=== PATIENT | male | born 1945 ===

== ENCOUNTER 2023-06-02 08:40 | Outpatient (AMB) | payer MEDICARE, SELFPAY ==
--- NOTE | 2023-06-02 08:43 | A.OFFVIS_ITS ---
Intake Intake Visit Reasons: [employer]- Right Knee pain Intake Note: Mr. Rocha presents with complaints of right knee pain. He describes his pain as sharp in nature. Most of the pain is along the medial aspect of his knee. He was recently seen at an urgent care center where he was told that his pain is due to ?arthritis?. He has tried anti-inflammatory medicines and Tylenol which gave him minimal relief. He has had cortisone injections in the past. He also went to formal physical therapy at [facility] in [place] which gave him minimal relief. He wishes to hold off on surgery for as long as possible. Allergies No Known Allergies Allergy (Verified 06/02/23 08:49) Medication List - Last Reconciled 06/02/23 by Thomas August MD atorvastatin 80 mg PO DAILY metformin 1,000 mg PO BID PFSH Surgical History Hx of shoulder surgery Social History Household Members: Spouse Housing: House Alcohol intake: current Alcohol intake frequency: a few times a month Alcohol type: wine Patient Tobacco Use Status: Never used Tobacco Use of substances other than those prescribed or required for medical reasons: No Current occupational status: retired Physical Exam Const Other: Well-nourished well-developed very friendly male awake alert and oriented x3 in no acute distress Extrem Other: Bilateral lower extremity examination shows good capillary refill, no skin lesions noted, normal sensation light touch Right knee examination shows a minimal effusion, mild crepitus with range of motion, no instability Results Reviewed Results Reviewed: X-rays of the patient's right knee show mild to moderate diffuse joint space narrowing, no acute bony abnormalities Assessment & Plan Assessment & Plan (1) Arthritis of right knee: Code(s): M17.11 - Unilateral primary osteoarthritis, right knee Plan Mr. Rocha presents with right knee pain due to degenerative joint disease. I had a lengthy discussion with the patient regarding the treatment options. He wishes to hold off on surgery for as long as possible. I agree with this plan. I will see whether not his insurance company will cover a viscosupplementation injection. I will see him back once the injection is available. He will follow-up as instructed. I spent 22 minutes in reviewing the patient's records and imaging studies, seeing the patient and documenting in the medical record. Orders: Orders XR knee RT 3V Today M25.561 - Pain in right knee Coding Level of Care Code Est Pt Level 2 (85010) Diagnoses Arthritis of right knee M17.11
== END 2023-06-02 09:14 | disposition home or self-care (01) ==
PROVIDERS: Visit Provider Orthopaedic Surgery
DX: M17.11 Unilateral primary osteoarthritis, right knee (principal)
CPT/HCPCS: 99213

== ENCOUNTER 2023-06-02 09:29 | Outpatient (REF) | payer MEDICARE, SELFPAY | END 2023-06-02 09:30 | disposition home or self-care (01) | LOC: HO.HOSX 09:29 | PROVIDERS: Visit Provider Orthopaedic Surgery | DX: M17.11 Unilateral primary osteoarthritis, right knee (principal) | CPT/HCPCS: 99212 ==

== ENCOUNTER → 2023-07-12 11:05 | Outpatient (BNVA) | payer MEDICARE, SELFPAY | PROVIDERS: PCP Internal Medicine; Visit Provider Orthopaedic Surgery ==

== ENCOUNTER 2023-07-19 11:06 | Outpatient (AMB) | payer MEDICARE, SELFPAY ==
--- NOTE | 2023-07-19 11:09 | MHC.OFFVIS ---
Intake Vital Signs 07/19/23 11:11 Height 5 ft 11 in Weight 150 lb BMI 20.9 Intake Visit Reasons: Right Knee Synvisc Gel Inj #1 Intake Note: Mr. Rocha presents with complaints of right knee pain. He describes his pain as sharp in nature. Most of the pain is along the medial aspect of his knee. He was recently seen at an urgent care center where he was told that his pain is due to ?arthritis?. He has tried anti-inflammatory medicines and Tylenol which gave him minimal relief. He has had cortisone injections in the past. He also went to formal physical therapy at [facility] in [place] which gave him minimal relief. He wishes to hold off on surgery for as long as possible. Allergies No Known Allergies Allergy (Verified 07/19/23 11:15) Medication List - Last Reconciled 07/19/23 by Thomas August MD atorvastatin 80 mg PO DAILY metformin 1,000 mg PO BID PFSH Surgical History Hx of shoulder surgery Social History Household Members: Spouse Housing: House Alcohol intake: current Alcohol intake frequency: a few times a month Alcohol type: wine Patient Tobacco Use Status: Never used Tobacco Current occupational status: retired Physical Exam Vital Signs: BMI result Body Mass Index 20.9 Const Other: Well-nourished well-developed very friendly male awake alert and oriented x3 in no acute distress Extrem Other: Bilateral lower extremity examination shows good capillary refill, no skin lesions noted, normal sensation light touch Right knee examination shows a minimal effusion, mild crepitus with range of motion, pain with range of motion, no instability Office Procedures Joint Injection/Drain Joint Injection/Drain Primary Site: right knee Prep: site was prepped using aseptic technique Injected: other (16 mg of Synvisc) Procedure: The patient tolerated the procedure well Coding 57216 - Large joint Procedure code (CPT) selection complete Results Reviewed Results Reviewed: X-rays of the patient's right knee show joint space narrowing, subchondral sclerosis, no acute bony abnormalities Assessment & Plan Assessment & Plan (1) Arthritis of right knee: Code(s): M17.11 - Unilateral primary osteoarthritis, right knee Plan Mr. Rocha presents with right knee pain due to degenerative joint disease. I had a lengthy discussion with the patient regarding the treatment options. He wishes to hold off on surgery for as long as possible. I agree with this plan. The risks and benefits of a series of right knee Synvisc viscosupplementation injections were discussed at length with the patient. The patient wished to proceed. He tolerated the 1st injection well. He will continue with his home exercise program. He will follow up next week as scheduled. Feel free to call me at any time should questions regarding his orthopedic management arise. I spent 22 minutes in reviewing the patient's records and imaging studies, seeing the patient and documenting in the medical record. Orders: Orders AMB Joint Injection/Aspiration 07/19/23 M17.11 - Unilateral primary osteoarthritis, right knee Coding Level of Care Code Est Pt Level 2 (90827) Diagnoses Arthritis of right knee M17.11 CPT Codes Coding - 02865 Large joint: 83187 - Large joint ([id number])
[2023-07-19 11:11] VITALS: BMI 20.9
== END 2023-07-19 11:36 | disposition home or self-care (01) ==
PROVIDERS: PCP Internal Medicine; Visit Provider Orthopaedic Surgery
DX: M17.11 Unilateral primary osteoarthritis, right knee (principal)
CPT/HCPCS: 20610

== ENCOUNTER → 2023-07-19 11:06 | Outpatient (BNVA) | payer MEDICARE, SELFPAY | PROVIDERS: PCP Internal Medicine; Visit Provider Orthopaedic Surgery | DX: M17.11 Unilateral primary osteoarthritis, right knee (principal) | CPT/HCPCS: 20610; J7325 ==

== ENCOUNTER 2023-07-27 11:08 | Outpatient (AMB) | payer MEDICARE, SELFPAY ==
[2023-07-27 11:41] VITALS: BMI 20.9
--- NOTE | 2023-07-27 11:41 | A.OFFVIS_ITS ---
Intake Vital Signs 07/27/23 11:41 Height 5 ft 11 in Weight 150 lb BMI 20.9 Intake Visit Reasons: Right Knee Synvisc Gel Inj #2/ Confirmed Intake Note: Sterling is a 77 year old male who presents for his #2 Right knee Synvisc gel injection. Patient reports his last injection went well and would like to proceed with his next injection. Allergies No Known Allergies Allergy (Verified 07/27/23 11:46) Medication List - Last Reconciled 07/27/23 by Thomas August MD atorvastatin 80 mg PO DAILY metformin 1,000 mg PO BID PFSH Surgical History Hx of shoulder surgery Social History Household Members: Spouse Housing: House Alcohol intake: current Alcohol intake frequency: a few times a month Alcohol type: wine Patient Tobacco Use Status: Never used Tobacco Current occupational status: retired Physical Exam Vital Signs: BMI result Body Mass Index 20.9 Extrem Other: Physical examination of the patient's right knee shows a mild effusion, palpable crepitus with range motion, pain with range of motion, no instability Office Procedures Joint Injection/Drain Joint Injection/Drain Primary Site: right knee Prep: site was prepped using aseptic technique and other (16 mg of Synvisc viscosupplementation) Injected: 1% plain lidocaine Procedure: The patient tolerated the procedure well Coding 78380 - Large joint Procedure code (CPT) selection complete Assessment & Plan Assessment & Plan (1) Arthritis of right knee: Code(s): M17.11 - Unilateral primary osteoarthritis, right knee Plan Mr. Rocha presents with right knee pain due to degenerative joint disease. The risks and benefits of a 2nd Synvisc injection were discussed at length with the patient. The patient wished to proceed. He tolerated the injection well. He will continue with his home exercise program. He will follow up for his 3rd inj ection as scheduled. Feel free to call me at any time should questions regarding his orthopedic management arise. Orders: Orders AMB Joint Injection/Aspiration Today M17.11 - Unilateral primary osteoarthritis, right knee Coding Level of Care Code Procedure Only Diagnoses Arthritis of right knee M17.11 CPT Codes Coding - 47749 Large joint: 71444 - Large joint ([id number])
== END 2023-07-27 12:19 | disposition home or self-care (01) ==
PROVIDERS: PCP Internal Medicine; Visit Provider Orthopaedic Surgery
DX: M17.11 Unilateral primary osteoarthritis, right knee (principal)
CPT/HCPCS: 20610

== ENCOUNTER → 2023-07-27 11:08 | Outpatient (BNVA) | payer MEDICARE, SELFPAY | PROVIDERS: PCP Internal Medicine; Visit Provider Orthopaedic Surgery | DX: M17.11 Unilateral primary osteoarthritis, right knee (principal) | CPT/HCPCS: 20610; J7325 ==

== ENCOUNTER 2023-08-11 10:13 | Outpatient (AMB) | payer MEDICARE, SELFPAY ==
--- NOTE | 2023-08-05 09:00 | MHC.OFFVIS ---
Intake Intake Visit Reasons: Right Knee Synvisc Gel Injection #3 Allergies No Known Allergies Allergy (Verified 07/27/23 11:46) PFSH Surgical History Hx of shoulder surgery Social History Household Members: Spouse Housing: House Alcohol intake: current Alcohol intake frequency: a few times a month Alcohol type: wine Patient Tobacco Use Status: Never used Tobacco Current occupational status: retired Coding
[2023-08-11 10:42] VITALS: BMI 20.9
--- NOTE | 2023-08-11 10:42 | A.OFFVIS_ITS ---
Intake Vital Signs 08/11/23 10:42 Height 5 ft 11 in Weight 150 lb BMI 20.9 Intake Visit Reasons: Right Knee Synvisc Gel Injection #3 Intake Note: Sterling is a 77 year old male who presents for his #3 Right knee Synvisc gel injection. Patient reports his last injection went well and has no concerns for today. He continues with his home exercise program. Allergies No Known Allergies Allergy (Verified 08/11/23 10:43) Medication List - Last Reconciled 08/11/23 by Thomas August MD atorvastatin 80 mg PO DAILY metformin 1,000 mg PO BID PFSH Surgical History Hx of shoulder surgery Social History Household Members: Spouse Housing: House Alcohol intake: current Alcohol intake frequency: a few times a month Alcohol type: wine Patient Tobacco Use Status: Never used Tobacco Current occupational status: retired Physical Exam Vital Signs: BMI result Body Mass Index 20.9 Extrem Other: Right knee examination shows a minimal effusion, palpable crepitus with range of motion, pain with range of motion, no instability Office Procedures Joint Injection/Drain Joint Injection/Drain Primary Site: right knee Prep: site was prepped using aseptic technique Injected: 1% plain lidocaine and other (16 mg of Synvisc viscosupplementation) Procedure: The patient tolerated the procedure well Coding 83091 - Large joint Procedure code (CPT) selection complete Assessment & Plan Assessment & Plan (1) Arthritis of right knee: Code(s): M17.11 - Unilateral primary osteoarthritis, right knee Plan Mr. Rocha presents with right knee pain due to degenerative joint disease. The risks and benefits of his 3rd Synvisc injection were discussed at length with the patient. The patient wished to proceed. He tolerated the injection well. He will continue with his home exercise program. Will follow up with me on an a s-needed basis should his symptoms not plateau at an unacceptable level over the next few months. Feel free to call me at any time should questions regarding his orthopedic management arise. Orders: Orders AMB Joint Injection/Aspiration 08/11/23 M17.11 - Unilateral primary osteoarthritis, right knee Coding Level of Care Code Procedure Only Diagnoses Arthritis of right knee M17.11 CPT Codes Coding - 21446 Large joint: 85683 - Large joint ([id number])
== END 2023-08-11 10:59 | disposition home or self-care (01) ==
PROVIDERS: PCP Internal Medicine; Visit Provider Orthopaedic Surgery
DX: M17.11 Unilateral primary osteoarthritis, right knee (principal)
CPT/HCPCS: 20610

== ENCOUNTER → 2023-08-11 10:13 | Outpatient (BNVA) | payer MEDICARE, SELFPAY | PROVIDERS: PCP Internal Medicine; Visit Provider Orthopaedic Surgery | DX: M17.11 Unilateral primary osteoarthritis, right knee (principal) | CPT/HCPCS: 20610; J7325 ==

== ENCOUNTER 2023-11-17 08:57 | Outpatient (AMB) | payer MEDICARE, SELFPAY ==
--- NOTE | 2023-11-17 09:00 | MHC.OFFVIS ---
Intake Visit Reasons: OV-Right Knee injection follow up Intake Note: Sterling 78 yr old male presents today S/P Right Knee gel synvisc injection follow up from 08/11/23. Pt states the pain is improved when compared to prior the injection. He did aggravate his right knee while vacationing recently her up. He denies any locking or giving way. He takes Aleve which gives him mild relief. Allergies No Known Allergies Allergy (Verified 11/17/23 09:00) Medication List - Last Reconciled 11/17/23 by Thomas August MD atorvastatin 80 mg PO DAILY metformin 1,000 mg PO BID PFSH Surgical History Hx of shoulder surgery Social History Household Members: Spouse Housing: House Alcohol intake: current Alcohol intake frequency: a few times a month Alcohol type: wine Patient Tobacco Use Status: Never used Tobacco Current occupational status: retired Physical Exam Const Other: Well-nourished well-developed very friendly male awake alert and oriented x3 in no acute distress Extrem Other: Right knee examination shows full range of motion when compared to his left knee, mild discomfort with range of motion Results Reviewed Results Reviewed: X-rays of the patient's right knee show joint space narrowing, subchondral sclerosis, no acute bony abnormalities Assessment & Plan Assessment & Plan (1) Arthritis of right knee: Code(s): M17.11 - Unilateral primary osteoarthritis, right knee Category: Medical Plan Mr. Rocha presents with right knee pain due to degenerative joint disease. I had a lengthy discussion with the patient regarding the options. At this point the patient's symptoms are tolerable to him. He will continue with his exercise program. He will continue taking Aleve as needed for his discomfort. He will contact me prior to his follow-up appointment in 2-3 months should any questions or concerns arise. Feel free to call me at any time should questions regarding his orthopedic management arise. I spent 20 minutes in reviewing the patient's records and imaging studies, seeing the patient and documenting in the medical record. Coding Level of Care Code Est Pt Level 2 (67410) Diagnoses Arthritis of right knee M17.11
== END 2023-11-17 09:30 | disposition home or self-care (01) ==
PROVIDERS: PCP Internal Medicine; Visit Provider Orthopaedic Surgery
DX: M17.11 Unilateral primary osteoarthritis, right knee (principal)
CPT/HCPCS: 99213

== ENCOUNTER → 2023-11-17 08:57 | Outpatient (BNVA) | payer MEDICARE, SELFPAY | PROVIDERS: PCP Internal Medicine; Visit Provider Orthopaedic Surgery | DX: M17.11 Unilateral primary osteoarthritis, right knee (principal) | CPT/HCPCS: 99212 ==

== ENCOUNTER 2024-02-09 08:27 | Outpatient (AMB) | payer MEDICARE, SELFPAY ==
[2024-02-09 08:27] VITALS: BMI 20.9
--- NOTE | 2024-02-09 08:27 | A.OFFVIS_ITS ---
Vital Signs 02/09/24 08:27 Height 5 ft 11 in Weight 150 lb BMI 20.9 Intake Visit Reasons: OV-Right Knee injection follow up Intake Note: Sterling is a 78 year old male who presents with complaints of mild intermittent discomfort in his right knee. The patient states that his discomfort is ?99% better? after the viscosupplementation injection. He denies any locking or giv ing way. He does not take any medicines for his discomfort. Allergies No Known Allergies Allergy (Verified 02/09/24 08:28) Medication List - Last Reconciled 02/09/24 by Thomas August MD atorvastatin 80 mg PO DAILY metformin 1,000 mg PO BID PFSH Surgical History Hx of shoulder surgery Social History Household Members: Spouse Housing: House Alcohol intake: current Alcohol intake frequency: a few times a month Alcohol type: wine Patient Tobacco Use Status: Never used Tobacco Current occupational status: retired Physical Exam Vital Signs: BMI result Body Mass Index 20.9 Const Other: Well-nourished well-developed very friendly male awake alert and oriented x3 in no acute distress Extrem Other: Right knee examination shows minimal crepitus with range of motion, no discomfort with range of motion, no instability Assessment & Plan Assessment & Plan (1) Arthritis of right knee: Code(s): M17.11 - Unilateral primary osteoarthritis, right knee Category: Medical Plan Ms. Rocha presents with right knee intermittent discomfort due to degenerative joint disease. I had a lengthy discussion with the patient regarding the treatment options. At this point the patient's symptoms are tolerable to him. He will continue with his activity modifications. He will follow up with me on an as-needed basis should his symptoms worsen in any way. Feel free to call me at any time should questions regarding his orthopedic management arise. I spent 20 minutes in reviewing the patient's records and imaging studies, seeing the patient and documenting in the medical record. Coding Level of Care Code Est Pt Level 3 (88253) Diagnoses Arthritis of right knee M17.11
== END 2024-02-09 08:52 | disposition home or self-care (01) ==
PROVIDERS: PCP Internal Medicine; Visit Provider Orthopaedic Surgery
DX: M17.11 Unilateral primary osteoarthritis, right knee (principal)
CPT/HCPCS: 99213

== ENCOUNTER → 2024-02-09 08:27 | Outpatient (BNVA) | payer MEDICARE, SELFPAY | PROVIDERS: PCP Internal Medicine; Visit Provider Orthopaedic Surgery | DX: M17.11 Unilateral primary osteoarthritis, right knee (principal) | CPT/HCPCS: 99212 ==

== ENCOUNTER 2024-08-15 14:34 | Outpatient (REF) | payer MEDICARE, SELFPAY ==
--- OUTSIDE RECORDS SUMMARY | 2024-08-16 17:54 | XMS_ITS ---
Author Name [facility] Organization Unknown History of Medication Use Medication Directions Dispensed Refills Start Date End Date Stat Clenpiq 10 mg-3.5 gram-12 gram/160 mL oral solution FOLLOW INSTRUCTIONS PROVIDED BY OFFICE active meloxicam 15 mg tablet Take 1 tablet every day by oral route. 03/15/2023 active metformin 1,000 mg tablet TAKE ONE TABLET BY MOUTH TWICE A DAY active metformin 500 mg tablet TAKE ONE TABLET BY MOUTH TWICE A DAY active Problems Problem Status Onset Date Problem Type Date of Resoluti on Source Osteoarthritis of right knee joint active 2023-03-15 ProblemAct ENS_AONECT
--- OUTSIDE RECORDS SUMMARY | 2024-08-16 17:55 | XMS_ITS | Clinical Summary ---
Author Organization [facility] Address [address] [place] [address] Care Team Providers Care Shingle Weaver Name Role Phone Kennedy Gupta MD Primary Care Provider [phone] Allergies No known active allergies Medications Medication Sig Dispensed Refills Start Date End Date Status atorvastatin (LIPITOR) tablet 40 mg TAKE 1 TABLET BY MOUTH EVERY DAY 3 09/16/2017 Active atorvastatin (LIPITOR) tablet 80 mg TAKE ONE TABLET BY MOUTH EVERY DAY 0 04/21/2022 Active benzonatate (TESSALON) 100 MG capsule benzonatate 100 mg capsule TAKE ONE CAPSULE BY MOUTH THREE TIMES A DAY NEEDED 0 Active influenza virus vaccine split, PF, 0.5 ML injection Fluad 65yr up(PF)45 mcg(15 mcgx3)/0.5 mL intramuscular syringe 0 Active metFORMIN (GLUCOPHAGE) tablet 500 mg metformin 500 mg tablet TAKE ONE TABLET BY MOUTH TWICE A DAY WITH MEALS 0 Active oxyCODONE-acetamino phen (PERCOCET) 5-325 MG per tablet oxycodone-acetaminoph en 5 mg-325 mg tablet TAKE 1 TABLET BY MOUTH EVERY 6 HOURS NEEDED 0 Active predniSONE (DELTASONE) tablet 20 mg prednisone 20 mg tablet TAKE TWO TABLETS BY MOUTH EVERY DAY FOR 5 DAYS 0 Active zoster vaccine recombinant adjuvanted (SHINGRIX) 50 MCG/0.5ML injection Shingrix (PF) 50 mcg/0.5 mL intramuscular suspension, kit 0 Active Active Problems Problem Noted Date Diagnosed Date Sprain lunotriquetral joint left wrist 3 Shoulder stiffness, right 03/14/2018 Family History Medical History Relation Name Comments Cancer Father Hyperlipidemia Mother Relation Name Status Comments Father Mother Social History Tobacco Use Types Packs/Day Years Used Date Smoking Tobacco: Never Smokeless Tobacco: Never Tobacco Cessation:Counseling Given: Not Answered Alcohol Use Standard Drinks/Week Comments Yes 1 (1 standard drink = 0.6 oz pur e alcohol) Sex and Gender Information Value Date Recorded Sex Assigned at Male 06/18/2022 3:47 PM EST Gender Identity Male 06/18/2022 3:47 PM EST Sexual Orientation Not on file Job Start Date Occupation Industry Not on file Not on file Not on file Last Filed Vital Signs Vital Sign Reading Time Taken Comments Blood Pressure - - Pulse - - Temperature - - Respiratory Rate - - Oxygen Saturation - - Inhaled Oxygen Concentration - - Weight 68 kg (150 lb) 06/17/2022 11:12 AM EST Height 180.3 cm (5' 11 ) 06/17/2022 11:12 AM EST Body Mass Index 20.92 06/17/2022 11:12 AM EST Plan of Treatment Health Maintenance Due Date Last Done Comments Hepatitis C Screening 1945 COVID-19 Vaccine (#1) 05/09/1946 Depression Screening 1957 Preventative Health Evaluation 11/07/1963 Shingrix-Zoster Vaccine (1 of 2) 11/07/1995 Fall Risk Assessment 2010 Pneumococcal Vaccine (1 of 1 - PCV) 2010 RSV Adult > 60+ Yrs or Pregn ant (1 - 1-dose 75+ series) 2020 Influenza Vaccine (#1) 2024 DTap / Tdap / Td (2 - Td or Tdap) 05/26/2029 019 Hepatitis B Vaccines Aged Out No long er eligible based on patient's age to complete this topic RSV Ped < 20 months Aged Out No longe r eligible based on patient's age to complete this topic Care Teams Shingle Weaver Relationship Specialty Start Date End Date Kennedy Gupta MD PCP - General Internal Medicine 08/26/17
--- OUTSIDE RECORDS SUMMARY | 2024-08-16 17:55 | XMS_ITS | Data Portability ---
Author Organization [place] [facility] [place] Address [address] [place] [address] Care Team Providers Care Guest Attendant Name Role Phone KYA VENTURA Primary Care Provider Assessment Encounter Date Assessment Date Assessment LastModified by Organization Details LastModified Time 03/15/2023 03/15/2023 77-year-old male with right knee pain secondary to mild osteoarthritis. After discussion regarding treatment options he is provided a prescription for meloxicam and an order for physical therapy. Follow-up is as needed. [email or web address] Not available 03/15/2023 16:53:18 Plan of Treatment Reminders Order Date Submit Date Provider Last Modified By Organization Details Last Modified Time Details Appointments None recorded. Lab None recorded. Referral None recorded. Procedures None recorded. Surgeries None recorded. Imaging XR, knee, 4 or more view 2022 023 [email or web address] [facility], [address], [place], [address], 16:55:14 Medication Orders meloxicam 15 mg tablet 2022 023 [id number], [address] [place], [address], 16:54:16 Patient TargetsNo targets recorded. Patient Instructions Encounter Date Encounter Id Patient Instructions Last Modified By Organization Details Last Modified Time 03/15/2023 [id number] physical therapy * - Diagnosis: OA R knee Evaluate and treat as indicated to reduce pain and to improve mobility, range of motion, and function. Please teach a home exercise plan and incorporate PT into patient's exercise routine. 2-3 sessions weekly for 6 weeks. [email or web address] Not available 03/22/2023 08:23:02 Reason for Referral None Reported. Problems Name Problem SNOMED Code Status Onset Date Resolution Date Notes Provider Name and Address Organization Details Recorded Time Osteoarthri tis of right knee joint [id number] 00 Active 2022 ROXIE JUAREZ PA-C [address], [facility] [place], [address], [place] [facility], 16:53:18 Problem Notes None recorded. Medical Equipment None Reported. Medications Name Sig Start Date Stop Date Status Note LastModified by Organization Details LastModified Time metformin 500 mg tablet TAKE ONE TABLET BY MOUTH TWICE A DAY active Not Available Not Available No t Available atorvastatin 80 mg tablet TAKE ONE TABLET BY MOUTH EVERY DAY active Not Available Not Available No t Available meloxicam 15 mg tablet TAKE ONE TABLET BY MOUTH EVERY DAY active Not Available Not Available No t Available metformin 1,000 mg tablet TAKE ONE TABLET BY MOUTH TWICE A DAY active Not Available Not Available No t Available Clenpiq 10 mg-3.5 gram-12 gram/160 mL oral solution FOLLOW INSTRUCTION S PROVIDED BY OFFICE active Not Available Not Available No t Available Dexcom G6 Sensor device USE TO CHECK BLOOD SUGARS DAILY active Not Available Not Available No t Available Dexcom G6 Business Objects USE TO TEST BLOOD SUGARS DAILY active Not Available Not Available No t Available Dexcom G6 Transmitter device USE TO CHECK BLOOD SUGARS DAILY active Not Available Not Available No t Available Vitals None Recorded Social History None recorded. Functional Status None recorded. Mental Status None recorded. Family History Nothing Reported. Medical History No medical history recorded. Past Encounters Encounter ID Performer Location Encounter Start Date Encounter Closed Date Diagnosis/Indication Diagnosis SNOMED-CT Code Diagnosis ICD10 Code Diagnosis Note [id number] Shekhar Price MD [facility] [place] [address] [facility] [address] [place] [address] 03/15/2023 16:05:36 03/15/2023 16:53:33 Pain of right knee joint [id number] 81448 M25.561 Osteoarthr itis of right knee joint [id number] 17259 M17.11 Health Concerns Section Related Observation LastModified by Organization Detai ls LastModified Time None Recorded Concern Status LastModified by Organization Details LastModified Time None Recorded Advance Directives Directive None Recorded Payers Encounter Date Sequence Insurance Name Policy Number Policy Richardson Covered Member ID Richardson Member ID Guarantor Name 03/15/2023 1 [place] (MEDICARE REPLACEMENT PPO) [id number] Sterling Rocha [id number] Sterling Rocha Notes Date Note Type Note Provider Name and Address Organization Details Recorded Time 03/15/2023 text/html 77-year-old male presents with complaint of right knee pain. The symptoms are of onset approximately 2 weeks ago. No specific injury accident or trauma. He localizes his pain to the region of the medial tibial plateau. He reports that at some point in the remote past he had an arthroscopy of one of his knees. He is not sure if it was right side or left side. Thus far he has treated this with Advil and Tylenol with no real relief of his discomfort. He repeatedly describes it as being mild and intermittent. ROXIE JUAREZ PA-C [address], [place], [address], [place] [facility], [facility] 03/15/2023 16:55:04
== END 2024-08-15 14:35 | disposition home or self-care (01) ==
LOC: HO.HOSX 14:34
PROVIDERS: Visit Provider Orthopaedic Surgery
DX: Z13.89 Encounter for screening for other disorder (principal)